=== PATIENT | female | born 1985 | race Caucasian/White ===

== ENCOUNTER 2021-03-27 08:34 | Emergency (ER) | payer MEDICAID, OTHER ==
[2021-03-27] MEDS ORDERED: Ketorolac Tromethamine 30 MG/ML VIAL ONE (10:28)
[2021-03-27] MEDS ORDERED: Promethazine HCl 25 MG/ML VIAL ONE (10:29)
[2021-03-27 10:59] LABS: #Eosinphils 0.3 10x3/uL (0.0-0.5); #Monocytes 0.3 10x3/uL (0.0-1.1); %Basophils 0.3 % (0.0-2.0); %Eosinophils 9.1 % (0.0-6.0); %Monocytes 9.7 % (0.0-10.0); %Neutrophils 57.6 % (40.0-75.0); Hemoglobin 12.8 g/dL (12.0-15.5); Mean Corpuscular HGB CONC 33.7 g/dL (32.0-36.0); Mean Corpuscular Hemoglobin 31.3 pg (27.0-33.0); Mean Corpuscular Volume 92.9 fl (81.6-98.3); Mean Platelet Volume 10.2 fl (7.4-10.4); Platelet Count 152 10x3/uL (150-450); RBC Distribution Width 12.4 % (11.5-14.5); Red Blood Cell (RBC) Count 4.09 10x6/uL (3.90-5.03); White Blood Cell (WBC) Count 3.5 10x3/uL (3.5-10.5)
[2021-03-27 11:10] LABS: ALT (SGPT) 18 U/L (8-55); AST (SGOT) 20 U/L (5-34); Albumin 4.4 g/dL (3.5-5.0); Alkaline Phosphatase 50 U/L (40-110); Anion Gap 12 mmol/L (10-20); BUN (Urea Nitrogen) 9 mg/dL (7.0-18.7); Bilirubin, Total 0.8 mg/dL (0.2-1.2); Calc. Creatinine Clearance 0 mL/min (70-130); Calcium 9.2 mg/dL (7.8-10.44); Carbon Dioxide 25 mmol/L (22-29); Chloride 109 mmol/L (98-107); Globulin 2.6 g/dL (2.4-3.5); Glucose 95 mg/dL (70-105); Lipase 24 U/L (8-78); Potassium 3.5 mmol/L (3.5-5.1); Sodium 142 mmol/L (136-145)
[2021-03-27 11:54] LABS: Bilirubin Neg (Negative); Blood, Urine Negative (Negative); Clarity Clear (Clear); Glucose, Urine (Dipstick) Normal (Negative); Ketone, Urine Negative (Negative); Leukocyte Negative (Negative); Nitrite Negative (Negative); Protein, Urine (Dipstick) Negative (Neg-Trace); Specific Gravity, Urine 1.005 (1.002-1.036); Urobilinogen Normal mg/dL (Less than 2)
[2021-03-27 11:58] LABS: Pregnancy Test - Urine (BHCG) Negative (Negative); Pregu Control Background? CLEAR/WHITE (CLR/WHITE); Pregu Control Bar Appear? YES (CONTROL BAR); Specific Gravity 1.005 (1.002-1.036)
== END 2021-03-27 14:00 | disposition home or self-care (01) ==
LOC: CSHERS 08:34
DX: M54.50 Low back pain, unspecified (principal); J45.909 Unspecified asthma, uncomplicated; M32.9 Systemic lupus erythematosus, unspecified
CPT/HCPCS: 76856; 80053; 81003; 81025; 83690; 85025; 96365; 96375; J1885; J2550

== ENCOUNTER 2021-05-14 12:03 | Outpatient (CLI) | payer OTHER ==
[2021-05-21] MEDS ORDERED: diphenhydrAMINE 50 MG/ML VIAL ONE (08:47)
[2021-05-21] MEDS ORDERED: methylPREDNISolone Sod Succ 40 MG VIAL ONE (08:47)
[2021-05-21] MEDS ORDERED: Famotidine/PF 20 mg/2ml Vial ONE (08:47)
== END 2021-05-14 12:04 | disposition home or self-care (01) ==
LOC: CSHCT 12:03
PROVIDERS: ATTEND Physician Assistant Medical
DX: R19.7 Diarrhea, unspecified (principal); R11.2 Nausea with vomiting, unspecified; K22.2 Esophageal obstruction; R63.4 Abnormal weight loss
CPT/HCPCS: 74177

== ENCOUNTER 2021-06-14 08:23 | Outpatient (CLI) | payer OTHER | END 2021-06-14 08:24 | disposition home or self-care (01) | LOC: CSHNM 08:23 | PROVIDERS: ATTEND Internal Medicine | DX: R11.15 Cyclical vomiting syndrome unrelated to migraine (principal) | CPT/HCPCS: 78264; A9541 ==